=== PATIENT | female | born 1995 | race Caucasian/White ===

== ENCOUNTER 2021-12-08 10:58 | Emergency (ER) | payer OTHER, SELFPAY ==
[2021-12-08 11:04] VITALS: BP 104/66; PULSE 97; RESP 16; TEMP 36.7; O2SAT 100
--- NOTE | 2021-12-08 11:13 | ED.EAR ---
HPI - Ear Problem General Chief complaint: Ear Stated complaint: Right Ear Pain Time Seen by Provider: 12/08/21 11:14 Source: patient and RN notes reviewed Mode of arrival: ambulatory Limitations: no limitations History of Present Illness HPI Narrative: 26-year-old female presents with concern for ear pain. She reports on Wednesday she tested positive for strep throat and was given amoxicillin. She reports her symptoms did not improve, she called the clinic who prescribed amoxicillin and they called her in Augmentin, she has not started that medication yet. She reports on Wednesday she also had stuffy nose, runny nose, sore throat. Reports some of the symptoms have improved however she continues to have ear pain that radiates to the jaw. She denies difficulty swallowing, drooling, muffled voice, fever. She reports she has been taking Tylenol at home. MD Complaint: ear pain Related Data Home Medications Medication Instructions Recorded Confirmed amoxicillin 500 mg capsule mg 12/08/21 amoxicillin 875 mg-potassium tablet 12/08/21 clavulanate 125 mg tablet Allergies Allergy/AdvReac Type Severity Reaction Status Date / Time ibuprofen Allergy Nausea and Verified 12/08/21 11:12 Vomiting Sulfa (Sulfonamide Allergy Unknown Verified 12/08/21 11:12 Antibiotics) HYDROMORPHONE HCL Allergy Itching Uncoded 12/08/21 11:12 Review of Systems Review of Systems: CONSTITUTIONAL: Denies malaise, chills, sweats, or fever. EYES: Denies visual changes, redness, or discharge. ENT: Reports mild rhinorrhea, congestion. Reports right ear pain that radiates to the right jaw and throat CARDIOVASCULAR: Denies chest pain, palpitations, or edema. RESPIRATORY: Denies cough. Denies dyspnea. GASTROINTESTINAL: Denies abdominal pain, nausea, vomiting, diarrhea SKIN: Denies rash or itching. MUSCULOSKELETAL: Denies myalgia. NEUROLOGIC: Denies headache. All systems reviewed & are unremarkable except as noted in HPI and below PMFSH Past Medical History Medical History (Updated 12/08/21 @ 11:23 by Christi Mcbride NP) No pertinent family history No significant past medical history Surgical History Surgical History (Updated 03/30/19 @ 15:53 by JIMMIE Bennett) Hx of cholecystectomy Hx of tonsillectomy Social History Social History (Updated 03/30/19 @ 16:01 by CATHERINE Bennett Smoking status: Never smoker Comments At time of signature, agree with nursing past medical, surgical, social and family history. There is no relevant family history pertinent to the presenting complaint Exam Narrative: GENERAL: Well-appearing, well-nourished, and in no acute distress. HEAD: Normocephalic EYES: PERRLA, conjunctivae clear ENT: Nares clear, clear discharge. Mucous membranes moist. TM pearly dinero with dull light reflex bilaterally; no tragal tenderness. Oropharynx erythematous without lesions. Tonsils not present, no drooling, no hoarseness, no trismus, uvula midline, no visible abscess NECK: Supple. No lymphadenopathy CHEST: Clear to auscultation, breath sounds equal. No wheezing, rhonchi, rales, or stridor. No respiratory distress, speaks in full sentences. HEART: Regular rate and rhythm. No murmur heard. SKIN: Warm, dry, no rash. NEURO: Alert and oriented x3. PSYCH: Normal mood and affect Course Course Emergency Course: Advised patient to picker and sorter load and unload the Augmentin and start taking that as prescribed. Added the Medrol Dosepak to facilitate symptom relief of nasal congestion, ear pain Patient is aware of diagnosis, understands and agrees to treatment plan. Anticipatory guidance given. Patient agrees to follow-up as directed and is aware of reasons to seek care at the emergency department. Portions of this record may have been created with voice recognition software Level of Care: Express Care Visit Vital Signs Vital signs: Vital Signs Temperature 98.1 F 12/08/21 11:04 Pulse Rate 97 12/08/21 11:04 Respiratory Rate
== END 2021-12-08 11:33 | disposition home or self-care (01) ==
PROVIDERS: Emergency Provider Nurse Practitioner; PCP Nurse Practitioner Family
DX: J06.9 Acute upper respiratory infection, unspecified (principal)
CPT/HCPCS: 99213; G0463

== ENCOUNTER 2022-03-10 16:17 | Emergency (ER) | payer OTHER, SELFPAY ==
[2022-03-10 16:22] VITALS: BP 111/73; PULSE 91; RESP 16; TEMP 36.6; O2SAT 100
--- NOTE | 2022-03-10 16:22 | ED.URI ---
HPI - URI/Sore Throat General Chief Complaint: Upper Respiratory Infection Stated Complaint: Congestion/Nausea Time Seen by Provider: 03/10/22 16:50 Source: patient and RN notes reviewed Mode of arrival: ambulatory Limitations: no limitations History of Present Illness HPI Narrative: 27-year-old female presents with concern for 4 day history of nasal congestion stuffy runny nose, itchy and watery eyes. She reports bilateral ear itching. She reports her rates there is been intermittently bleeding. She reports taking [id number] cold a. She denies fever, aches chills, sweats. MD elicited complaint: nasal congestion Related Data Home Medications Medication Instructions Recorded Confirmed drospirenone (contraceptive) 4 mg 1 tablet DAILY 03/10/22 03/10/22 (28) tablet (Slynd) Allergies Allergy/AdvReac Type Severity Reaction Status Date / Time ibuprofen Allergy Nausea and Verified 03/10/22 16:32 Vomiting Sulfa (Sulfonamide Allergy Unknown Verified 03/10/22 16:32 Antibiotics) HYDROMORPHONE HCL Allergy Itching Uncoded 03/10/22 16:32 Review of Systems Review of Systems: CONSTITUTIONAL: Denies malaise, chills, sweats, or fever. EYES: Denies visual changes, redness, or discharge. Reports that she eyes watery eyes ENT: Reports rhinorrhea, congestion, ear itching. Denies sinus pain, otalgia and sore throat. CARDIOVASCULAR: Denies chest pain, palpitations, or edema. RESPIRATORY: Denies cough. Denies dyspnea. GASTROINTESTINAL: Denies abdominal pain, nausea, vomiting, diarrhea SKIN: Denies rash or itching. MUSCULOSKELETAL: Denies myalgia. NEUROLOGIC: Denies headache. All systems reviewed & are unremarkable except as noted in HPI and below [facility] Past Medical History Medical History (Updated 03/10/22 @ 16:58 by Christi Mcbride NP) No pertinent family history No significant past medical history Surgical History Surgical History (Updated 03/30/19 @ 15:53 by JIMMIE Bennett) Hx of cholecystectomy Hx of tonsillectomy Social History Social History (Updated 03/30/19 @ 16:01 by JIMMIE Bennett) Smoking status: Never smoker Comments At time of signature, agree with nursing past medical, surgical, social and family history. There is no relevant family history pertinent to the presenting complaint Exam Narrative: GENERAL: Well-appearing, well-nourished, and in no acute distress. HEAD: Normocephalic EYES: PERRLA, conjunctivae clear ENT: Nares clear, no epistaxis, no lesions clear discharge. Mucous membranes moist. TM pearly dinero with sharp light reflex bilaterally; no tragal tenderness. Oropharynx not erythematous without lesions. Tonsils not enlarged and without exudate, no drooling, no hoarseness, no trismus, uvula midline. NECK: Supple. No lymphadenopathy CHEST: Clear to auscultation, breath sounds equal. No wheezing, rhonchi, rales, or stridor. No respiratory distress, speaks in full sentences. HEART: Regular rate and rhythm. No murmur heard. SKIN: Warm, dry, no rash. NEURO: Alert and oriented x3. PSYCH: Normal mood and affect Course Course Emergency Course: Patient is aware of diagnosis, understands and agrees to treatment plan. Anticipatory guidance given. Patient agrees to follow-up as directed and is aware of reasons to seek care at the emergency department. Portions of this record may have been created with voice recognition software Level of Care: Express Care Visit Vital Signs Vital signs: Reviewed. MDM - URI/Sore Throat MDM Narrative Medical decision making narrative: Differential diagnosis considered: Miller virus, strep pharyngitis, allergic rhinitis, upper respiratory tract infection, sinusitis, rhinosinusitis, nasopharyngitis. viral pharyngitis, otitis media, otitis externa, pneumonia, bronchitis, viral cough syndrome, viral syndrome, and influenza. Exam findings show no acute concerns or changes; patient is non-toxic appearing and is in no distress. Patient is
== END 2022-03-10 17:10 | disposition home or self-care (01) ==
PROVIDERS: Emergency Provider Nurse Practitioner; PCP Nurse Practitioner Family
DX: J06.9 Acute upper respiratory infection, unspecified (principal); J34.89 Other specified disorders of nose and nasal sinuses
CPT/HCPCS: 99213; G0463